=== PATIENT | male | born 1985 | race Caucasian/White ===

== ENCOUNTER → 2023-06-10 | Outpatient (CLI) | payer SELFPAY, OTHER ==
--- NOTE | 2023-06-10 07:36 | CT_ITS ---
STUDY: CARDIAC CALCIUM SCORING - CT CHEST REASON FOR EXAM: Male, 37 years old. Encounter for screening for cardiovascular disorders RADIATION DOSAGE (If Supplied By Facility): CTDIvol = ( 12.19 ) mGy, DLP = ( 195.04 ) mGycm TECHNIQUE: Axial non-enhanced images were acquired through the heart for the sole purpose of measuring coronary artery calcium. Individualized dose optimization techniques were used for this CT. COMPARISON: No relevant prior comparison study available FINDINGS: Visualized surrounding anatomy: There are multiple bilateral pulmonary nodules with the largest measuring 1 cm in the lingula. A dedicated chest CT is recommended. The liver is low in density, consistent with fatty infiltration. Left Main Coronary Artery: 25.4 Left Anterior Descending Artery: 0 Left Circumflex Artery: 0 Right Coronary Artery: 0 Total Calcium Score: 25.4 CT/Limited Chest CT Cardiac Only IMPRESSION: A Calcium Score of 25.4 places the patient in the approximate 99th percentile, based on the [facility] data calculator. Multiple bilateral pulmonary nodules measuring up to 1 cm in the lingula. A dedicated chest CT is recommended. Fatty liver. Please go to: [email or web address] , for a description of the calculator. Electronically Signed: Ariel Soliman MD at 15:28 EDT ,
--- NOTE | 2023-06-11 14:02 | CA.SCORE ---
Calcium Scoring Date of Study:: 06/10/23 Coronary Calcium Scoring: High-resolution Computed Tomographic imaging of the chest was performed on [06/10/23 ], with particular attention paid to the coronary arteries. Images from the examination were analyzed for the presence and extent of coronary artery calcification , using coronary calcium quantification software. The patient tolerated the procedure well and there were no complications. The results of the coronary calcification analysis are provided below. Findings Coronary Artery Left Main (LM): 0 Left Anterior Descending (LAD): 25 Left Circumflex (LCX): 0 Right Coronary Artery (RCA): 0 Total Agatston Score: 25 Percentile Rankin Calcium Scoring Interpretation: Different methods to categorize the overall amount of coronary plaque. Overall amount CAC SIS Visual of coronary plaque P1 Mild -100 <2 1-2 vessels with mild amount of plaque P2 Moderate 101-300 3-4 1-2 vessels with moderate amount, 3 vessels with mild amount of plaque P3 Severe 301-999 5-7 3 vessels with moderate amount, 1 vessel with severe amount of plaque P4 Extensive >1000 >8 2-3 vessels with severe amount of plaque Conclusion: Minimal amount of plaque in a small portion of the LAD. No other atherosclerotic areas.
== END | disposition home or self-care (01) ==
LOC: CT 07:36
PROVIDERS: PCP Family Medicine; Referring Provider Nurse Practitioner Family; Visit Provider Nurse Practitioner Family
DX: Z13.6 Encounter for screening for cardiovascular disorders (principal); E11.9 Type 2 diabetes mellitus without complications
CPT/HCPCS: 75571; 76380

== ENCOUNTER → 2023-07-05 | Outpatient (CLI) | payer SELFPAY, OTHER ==
--- NOTE | 2023-07-05 07:26 | CT_ITS ---
INDICATION: Atypical chest pain, known nodules EXAMINATION: CT CHEST WITHOUT CONTRAST - CT Chest W/O Contrast Injection TECHNIQUE: Helically acquired images were obtained of the chest. A radiation dose optimization technique was used for this scan. IV Contrast dosage and agent: None. COMPARISON: 06/10/2023 FINDINGS: LUNGS, PLEURA AND LARGE AIRWAYS: Lungs are normally expanded. Stable noncalcified 6.5 mm in nodule in the superior left lower lobe on axial image 33. Stable 1 cm noncalcified nodule in the medial lingula on axial image 50, stable pleural-based 2.5 mm nodule in the right lower lobe on axial image 61. Stable 4 mm noncalcified nodule in the right middle lobe on axial image 66. No other noncalcified nodules are identified. In a patient of this age with no smoking history a suspicious pulmonary process is unlikely but a six-month follow-up CT is recommended to assess stability of the nodules. There is no organized infiltrate, or effusion. THYROID: No thyroid lesions. HEART AND PERICARDIUM: Heart size is normal. No pericardial effusion. CORONARY ARTERIES: Coronary artery calcification is not seen. VESSELS: Thoracic aorta is not dilated. MEDIASTINUM AND BRITTNEY: No mediastinal or hilar adenopathy. Esophagus is unremarkable. No hiatal hernia. UPPER ABDOMEN: Limited cuts through the upper abdomen show fatty infiltration of the liver. BONES: No suspicious lytic or blastic abnormality. CT/Chest without Contrast IMPRESSION: Multiple noncalcified pulmonary nodules again identified in both lung trent unchanged from a cardiac CTA from 06/10/2023. Another six-month follow-up CT chest is recommended to assess stability. No organized infiltrate or effusion, no suspicious adenopathy Fatty liver Electronically Signed: Robert Bethea MD at 8:50 EDT ,
== END | disposition home or self-care (01) ==
LOC: CT 07:25
PROVIDERS: PCP Family Medicine; Referring Provider Nurse Practitioner Family; Visit Provider Nurse Practitioner Family
DX: R91.8 Other nonspecific abnormal finding of lung field (principal)
CPT/HCPCS: 71250